=== PATIENT | male | born 1960 | race Caucasian/White ===

== ENCOUNTER → 2018-05-12 16:14 | Outpatient (CLI) | payer OTHER, SELFPAY ==
--- NOTE | 2018-05-12 12:58 | COLBX_PTH ---
PATIENT: ALVIN TOSCANO LOC: [facility] U#:[id number] AGE/SX: 64/M ROOM: RE05/12/[address]: Dr. Guanakito Harrell MD : [id number] BED: DIS: SPEC #: [id number] RECD: 05/12/18 15:53 STATUS: GISSELLE SAVANNAH #: [id number] JEFF: 05/12/18 12:[address]: Guanakito Harrell DEPT: SURGICAL PATHOLOGY RECD BY: Ruy Valdovinos ENTERED: 05/15/18 09:39 SP TYPE: COLON BX OTHR DR: Dr. Nickolas Chen MD [facility] Tissues: Sigmoid colon biopsy Procedures: Surgery Specimen Level IV HEADER OPERATION: Colonoscopy with polypectomy PRE-OP DIAGNOSIS: Screening / polyp TISSUE SUBMITTED: Distal sigmoid polyp, rule out adenoma MICROSCOPIC DIAGNOSIS Distal sigmoid colon polyp, biopsy: Tubular adenoma. AM:deni 05/16/18 MICROSCOPIC DESCRIPTION Slides are reviewed. GROSS DESCRIPTION Received in fixative is one container labeled with the patient's name and designated sigmoid polyp. The specimen consists of one irregular fragment of light [place] soft tissue that measures 0.5 x 0.2 x 0.2 cm. The specimen is totally submitted in one cassette. / AM:deni 05/15/18 TC:5 CPT: 01106
== END ==
PROVIDERS: Family Provider Family Medicine; PCP Family Medicine; Referring Provider Internal Medicine Gastroenterology; Visit Provider Internal Medicine Gastroenterology
DX: Z12.11 Encounter for screening for malignant neoplasm of colon (principal); K63.5 Polyp of colon
CPT/HCPCS: 88305